=== PATIENT | male | born 2000 | race Caucasian/White ===

== ENCOUNTER 2022-12-11 16:13 | Outpatient (CLI) | payer MEDICAID, SELFPAY | END 2022-12-11 16:14 | disposition home or self-care (01) | LOC: AMB 12-17 12:22 | PROVIDERS: Visit Provider Family Medicine | DX: R07.89 Other chest pain (principal) | CPT/HCPCS: A0998 ==

== ENCOUNTER 2023-06-14 20:57 | Outpatient (CLI) | payer MEDICAID, SELFPAY ==
--- OUTSIDE RECORDS SUMMARY | 2023-06-16 11:09 | XMS_ITS ---
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, not intractable, without status epilepticus G40.009 Active Problem Unspecified convulsions R56.9 Active Problem Dysthymic disorder F34.1 Active ALLERGIES No Known Allergies ENCOUNTERS Encounter Location Date Diagnosis [facility] [address] [place] [address] May, Unspecified convulsions R56.9 ; Localization-related (focal) (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, not intractable, without status epilepticus G40.009 and Other adjunct faculty for medical terminology (current) drug therapy Z79.899 [facility] [address] [place] [address] Jan, Unspecified convulsions R56.9 [facility] [address] [place] [address] Jan, [facility] [place] [address] [place] [address] Nov, Unspecified convulsions R56.9 ; Other adjunct faculty for medical terminology (current) drug therapy Z79.899 and Encounter for screening for other suspected endocrine disorder Z13.29 [facility] [address] [place] [address] Nov, Dysthymic disorder F34.1 [facility] [address] [place] [address] Nov, [facility] [address] [place] [address] Nov, [facility] [address] [place] [address] Nov, [facility] [address] [place] [address] Nov, Unspecified convulsions R56.9 ; Other specified depressive episodes F32.89 and Anxiety disorder, unspecified F41.9 [facility] [address] [place] [address] Aug, [facility] [place] [address] [place] [address] Aug, Unspecified convulsions R56.9 ; Other adjunct faculty for medical terminology (current) drug therapy Z79.899 and Encounter for screening for other suspected endocrine disorder Z13.29 [facility] [place] [facility] [address] [place] [address] May, Unspecified convulsions R56.9 ; Other penitentiary (current) drug therapy Z79.899 and Encounter for screening for other suspected endocrine disorder Z13.29 [facility] [address] [place] [address] Dec, Unspecified convulsions R56.9 [facility] [place] [address] [place] [address] Dec, Unspecified convulsions R56.9 ; Other penitentiary (current) drug therapy Z79.899 and Encounter for screening for other suspected endocrine disorder Z13.29 [facility] [address] [place] [address] Oct, Unspecified convulsions R56.9 ; Other adjunct faculty for medical terminology (current) drug therapy Z79.899 and Encounter for screening for other suspected endocrine disorder Z13.29 [facility] [place] [address] [place] [address] Oct, [facility] [address] [place] [address] Sep, IMMUNIZATIONS No Known Immunizations SOCIAL HISTORY [...] UREA NITROGEN (BUN) CREATININE 0.95 eGFR NON-AFR. CANADIAN eGFR BUN/CREATININE RATIO SODIUM 140 POTASSIUM CHLORIDE [...] for seizure, EEG and review of results, MOVIE ACTOR 1230PM EEG, 230pm DLD, New Appt Insurance Providers Health Insurance Type Health Plan Insurance Address Health Plan Insurance Phone Health Plan Insurance Name Health Plan Coverage Dates Member ID Patient Relationship to Subscriber Patient Address Patient Phone Patient Name Patient Date of Subscriber ID Subscriber Name Subscriber Date of Group No EDGARARE SRINIVASA RUANO [address] [place] [id number] [place] self Rajinder Archibal d [id number] [facility] SRINIVASA RUANO [address] [place] [address] IR[place] B[place] self Rajinder Archibal d [id number] [place]
== END 2023-06-14 20:58 | disposition home or self-care (01) ==
LOC: AMB 06-16 11:07
PROVIDERS: Visit Provider Family Medicine
DX: R07.89 Other chest pain (principal)
CPT/HCPCS: A0425; A0427

== ENCOUNTER 2023-06-14 21:24 | Emergency (ER) | payer MEDICAID, SELFPAY ==
[2023-06-14 21:36] VITALS: BP 141/78; PULSE 84; RESP 18; TEMP 36.8; O2SAT 99; BMI 24.4
--- NOTE | 2023-06-14 21:40 | ED_ITS ---
HPI - Chest Pain General Time Seen by Provider: 21:40 Date Seen: 06/14/23 Chief Complaint: Chest Pain Stated Complaint: Chest Pain Time Seen by Provider: 06/14/23 21:39 Source: patient, EMS, RN notes reviewed and old records reviewed Mode of arrival: EMS Limitations: no limitations History of Present Illness HPI narrative: 22-year-old male who comes in today with substernal chest pain. This occurred at work, last about an hour, accompanied by shortness of breath and some nausea but no vomiting. No radiation. Resolved without intervention. Denies leg swelling. Does have a history of gastritis and says he feels bloated today. No prior surgeries. Review of chart shows that patient was evaluated by EMS in November for right-sided chest pain but declined transport to the emergency department at that time. Related Data Home Medications Medication Instructions Recorded Confirmed No Known Home Medications 06/14/23 06/14/23 Allergies Allergy/AdvReac Type Severity Reaction Status Date / Time No Known Drug Allergies Allergy Verified 06/14/23 21:48 Review of Systems Status of ROS Reports: 10 or more systems reviewed and unremarkable except as noted in History and below Exam Narrative Exam Narrative: General: Well-developed and well-nourished, no acute distress Head: Atraumatic and normocephalic Eyes: Pupils are equal reactive, extraocular motions intact, conjunctiva clear ENT: External nose and ears are normal, posterior pharynx without erythema or exudate Neck: No midline cervical tenderness, full spontaneous range of motion the neck, trachea midline, no adenopathy Heart: Regular rate and rhythm no murmurs or thrills Lungs: Clear to auscultation bilaterally without wheezes or crackles Abdomen: Soft, epigastric tenderness,, nondistended with active bowel sounds Musculoskeletal: No tenderness, deformity, or edema Neurologic: Awake, alert, and oriented x3, no gross focal neurologic deficits, cranial nerves intact as tested Psych: Mood and affect are appropriate Skin: No rashes Const Vital Signs, click to edit/add: Vital Signs - 24 hr 06/14/23 21:36 Temperature 98.2 F Pulse Rate [Right Pulse Oximeter] 84 Respiratory Rate 18 Blood Pressure [Right Upper Arm] 141/78 H Pulse Oximetry 99 Oxygen Delivery Method Room Air Course Course Hospital Course: Patient seen and examined, prior records reviewed. Patient presents today with substernal chest pain lasting about an hour occurred about an hour prior to coming emergency department. Currently pain-free. He does have some epigastric tenderness on exam. EKG is reassuring, labs are ordered. Consider D-dimer or CT PE study but patient is low risk and PERC negative. Reevaluation(s) Time of Reevaluation #1: 22:40 Reevaluation #1: Labs independently interpreted by me with reassuring basic panel, negative troponin, normal lipase. Remaining labs are pending and if reassuring patient be discharged. Time of Reevaluation #2: 23:17 Reevaluation #2: Labs independently interpreted by me with slightly elevated AST and ALT. Consider cholelithiasis but no right upper quadrant tenderness at this time, no evidence of choledocholithiasis with normal bilirubin and normal lipase. Troponin is negative and EKG is reassuring, patient remains pain-free. Patient is stable for discharge with outpatient follow-up Vital Signs Vital signs: Initial Vital Signs Temperature 98.2 F 06/14/23 21:36 Temperature Source Temporal Artery Scan 06/14/23 21:36 Pulse Rate 84 06/14/23 21:36 Pulse Rhythm Regular 06/14/23 21:36 Pulse Strength 3+ Normal 06/14/23 21:36 Respiratory Rate 18 06/14/23 21:36 Blood Pressure 141/78 H 06/14/23 21:36 Blood Pressure Mean 99 06/14/23 21:36 Blood Pressure Position Sitting 06/14/23 21:36 Pulse Oximetry 99 06/14/23 21:36 Oxygen Delivery Method Room Air 06/14/23 21:36 Vital Signs Temperature 98.2 F 06/14/23 21:36 Pulse Rate 84 06/14/23 21:36 Respiratory Rate 18 06/14/23 21:36 Blood Pressure 141/78 H 06/14/23 21:36 Pulse Oximetry 99 06/14/23 21:36 Oxygen Delivery Method Room Air 06/14/23 21:36 Temperature 98.2 F 06/14/23 21:36 Pulse Rate 84 06/14/23 21:36 Respiratory Rate 18 06/14/23 21:36 Blood Pressure 141/78 H 06/14/23 21:36 Pulse Oximetry 99 06/14/23 21:36 Oxygen Delivery Method Room Air 06/14/23 21:36 MDM - Chest Pain Lab Data Labs: Lab Results 06/14/23 Range/Units 22:02 WBC 7.27 (4.50-11.00) K/uL RBC 5.21 (4.30-5.90) m/uL Hgb 15.2 (13.5-17.5) gm/dL Hct 45.4 (37.0-53.0) % MCV 87 (80-100) fL MCH 29 (26-34) pg MCHC 34 (32-36) gm/dL RDW Coeff of Randy 12.6 (11.5-15.5) % Plt Count 289 (140-440) K/uL Neut % (Auto) 52.1 (42.0-72.0) % Lymph % (Auto) 30.8 (20-44) % Hyde % (Auto) 11.1 H (0.0-11.0) % Eos % (Auto) 3.6 (0.0-7.0) % Baso % (Auto) 0.6 (0.0-3.0) % Neut # (Auto) 3.79 (1.7-7.0) K/uL Lymph # (Auto) 2.24 (0.90-2.90) K/uL Hyde # (Auto) 0.80 (0.00-0.90) K/UL Eos # (Auto) 0.26 (0.00-0.50) K/uL Baso # (Auto) 0.04 (0.00-0.30) K/uL Abs Immat Gran (auto) 0.13 (0.00-0.30) K/uL Imm/Tot Granulo (auto) 1.8 % Sodium 140 (135-149) mmol/L Potassium 3.9 (3.6-5.1) mmol/L Chloride 103 (96-114) mmol/L Carbon Dioxide 28 (20-32) mmol/L BUN 21 (5-24) mg/dL Creatinine 0.9 (0.5-1.5) mg/dL Estimated Creat Clear 143.03 Estimated GFR 122 ml/min Glucose 121 H (60-115) mg/dL Calcium 9.3 (8.4-10.6) mg/dL Magnesium 2.1 (1.5-2.6) mg/dL Total Bilirubin 0.3 (0.1-1.5) mg/dL Direct Bilirubin 0.1 (0.0-0.5) mg/dL AST 59 H (12-35) U/L ALT 74 H (4-50) U/L Alkaline Phosphatase 91 (40-150) U/L Total Protein 7.4 (6.0-8.3) g/dL Albumin 4.4 (3.3-5.0) g/dL Lipase 51 (23-300) U/L POC Troponin I 0.00 L (0.01-0.04) ng/ml ECG Data Attestation: I personally reviewed and interpreted this ECG as follows: ECG interpretation date: 06/14/23 ECG interpretation time: 21:40 Prior ECG tracings: not available for review Interpretation: Sinus rhythm rate 81, no acute ST elevations or depressions, normal intervals, normal axis, QTC 422, MT 144 Discharge Plan Discharge Clinical Impression: Chest pain, Transaminitis Patient Disposition: Home, Self-Care Condition: Stable Instructions: Chest Pain (DC) Additional Instructions: Tylenol or ibuprofen as needed for chest pain. Follow-up with your primary care doctor as needed. Your liver tests are slightly elevated. This could be from a mild viral infection, medications, alcohol use, or other causes inflammation. Follow-up with your primary care provider in 1 week for recheck of these tests and to discuss further evaluation and treatment for her chest pain if needed. Activity Level: Activity as Tolerated Discharge Diet: Regular Prescriptions: No Action No Known Home Medications Follow Up/Referrals: Provider,Not a Local [Primary Care Provider] - Stand Alone Forms: [employer] Info Instructions
--- OUTSIDE RECORDS SUMMARY | 2023-06-14 22:08 | XMS_ITS ---
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, not intractable, without status epilepticus 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 Active 169320957 Problem Unspecified convulsions R56.9 Active 84170572 Problem Dysthymic disorder F34.1 Active 67534995 ALLERGIES No Known Allergies ENCOUNTERS Encounter Location Date Diagnosis [facility] [address] [place] [address] May, Unspecified convulsions R56.9 ; Localization-related (focal) (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, not intractable, without status epilepticus G40.009 and Other termite treater helper (current) drug therapy Z79.899 [facility] [address] [place] [address] Jan, Unspecified convulsions R56.9 [facility] [address] [place] [address] Jan, [facility] [place] [address] [place] [address] Nov, Unspecified convulsions R56.9 ; Other senior care (current) drug therapy Z79.899 and Encounter for screening for other suspected endocrine disorder Z13.29 [facility] [address] [place] [address] Nov, Dysthymic disorder F34.1 [facility] [address] [place] [address] Nov, [facility] [address] [place] [address] Nov, [facility] [address] [place] [address] Nov, [facility] [address] [place] [address] Nov, Unspecified convulsions R56.9 ; Other specified depressive episodes F32.89 and Anxiety disorder, unspecified F41.9 [facility] [address] [place] [address] 14 Aug, 2020 [facility] [place] [address] [place] [address] Aug, Unspecified convulsions R56.9 ; Other termite treater helper (current) drug therapy Z79.899 and Encounter for screening for other suspected endocrine disorder Z13.29 [facility] [place] [address] [place] [address] May, Unspecified convulsions R56.9 ; Other senior care (current) drug therapy Z79.899 and Encounter for screening for other suspected endocrine disorder Z13.29 [facility] [address] [place] [address] Dec, Unspecified convulsions R56.9 [facility] [place] [address] [place] [address] Dec, Unspecified convulsions R56.9 ; Other senior care (current) drug therapy Z79.899 and Encounter for screening for other suspected endocrine disorder Z13.29 [facility] [place] [address] [place] [address] Oct, Unspecified convulsions R56.9 ; Other senior care (current) drug therapy Z79.899 and Encounter for screening for other suspected endocrine disorder Z13.29 [facility] [place] [address] [place] [address] Oct, [facility] [address] [place] [address] Sep, IMMUNIZATIONS No Known Immunizations SOCIAL HISTORY Qualifiers Date Current Smoker REASON FOR REFERRAL FUNCTIONAL STATUS PLAN OF CARE Activity Details Follow Up 1 Year Reason: Future Test OXCARBAZEPINE Future Test COMPREHENSIVE METABO LIC PANEL [id number] Pending Test BASIC METABOLIC PANE L Pending Test OXCARBAZEPINE Pending Test COMPREHENSIVE METABO LIC PANEL Pending Test CBC (INCLUDES DIFF/P LT) Pending Test OXCARBAZEPINE Pending Test COMPREHENSIVE METABO LIC PANEL Pending Test CBC (INCLUDES DIFF/P LT) Pending Test OXCARBAZEPINE Pending Test VITAMIN D, 1,25 DIHY DROXY LC/MS/MS Pending Test COMPREHENSIVE METABO LIC PANEL Pending Test CBC (INCLUDES DIFF/P LT) Pending Test OXCARBAZEPINE Pending Test VITAMIN D, 1,25 DIHY DROXY LC/MS/MS VITAL SIGNS Weight 82.7 kg 2022-06-09 Weight 75.2 kg 2020-09-04 Weight 75.1 kg 2020-06-05 Weight 72.0 kg 2019-12-25 Weight 76.1 kg 2019-10-31 Height 72 in 2022-06-09 Height 72 in 2020-12-18 Height 72 in 2020-09-04 Height 72 in 2020-06-05 Height 72 in 2019-12-25 Height 72 in 2019-10-31 Heart Rate 70 /min 2020-09-04 Heart Rate 92 /min 2019-12-25 Heart Rate 67 /min 2019-10-31 Temperature 98.4 degrees Fahrenheit BMI 24.72 kg/m2 2022-06-09 BMI 21.97 kg/m2 2020-12-18 BMI 22.48 kg/m2 2020-09-04 BMI 22.45 kg/m2 2020-06-05 BMI 21.53 kg/m2 2019-12-25 BMI 22.75 kg/m2 2019-10-31 Blood pressure systolic 125 mm Hg Blood pressure diastolic 75 mm Hg 2020-08 MEDICATIONS Medication Instructions Dosage Frequency Start Date End Date Duration Status Ibuprofen 200 MG Orally Three times a day 1 tablet with food or milk as needed 8h Active Melatonin 10 MG as directed Not-Takin g OXcarbazepine 300 MG Orally twice a day (bid) 3 tablets 90 days Active PROCEDURES Procedure Date Ordered Result Body Site PSYCL/NRPSYC TECH Nov 25, 2020 NRPSYC TST EVAL PHYS/QHP 1ST Nov 25, 2020 NRPSYC TST EVAL PHYS/QHP EA Nov 25, 2020 PSYCH DIAGNOSTIC EVALUATION Dec 12, 2020 NEUROBEHAVIORAL STATUS EXAM Nov 25, 2020 PSYCL/NRPSYC TST TECH EA Nov 25, 2020 RESULTS Name Result Date Reference Range OXCARBAZEPINE 2019-12-25 OXYCARBAZEPINE 10.6 COMPREHENSIVE METABOLIC PANEL 2019-12-25 GLUCOSE UREA NITROGEN (BUN) CREATININE 0.95 eGFR NON-AFR. ESTONIAN eGFR BUN/CREATININE RATIO SODIUM 140 POTASSIUM CHLORIDE CARBON DIOXIDE CALCIUM PROTEIN, TOTAL ALBUMIN GLOBULIN ALBUMIN/GLOBULIN RATIO BILIRUBIN, TOTAL ALKALINE PHOSPHATASE 103 AST 14 ALT 9 EGFR REASON FOR VISIT Follow-up regarding unspecified spells, Medication management, future plan of care, oxca refill, DLD to [place], Follow-up regarding unspecified spells, Medication management, future plan of care, 02/25 scheduled---Suma MD-MD appt, Depression, Follow-up regarding unspecified spells, Medication management, future plan of care, Depression, 12/09-scheduled-------therapy referral, mental health follow up, neuropsych feedback, Neuropsychological Assessment, 09/04 Neuropsych order , Follow-up regarding unspecified spells, Medication management, future plan of care, Follow-up for unspecified spells, 12/29 Mailbox full - labs , Follow-up for unspecified spells, New patient visit/emergency department followup for seizure, EEG and review of results, CLIENT TECHNICAL SUPPORT ASSOCIATE 1230PM EEG, 230pm DLD, New Appt Insurance Providers Health Insurance Type Health Plan Insurance Address Health Plan Insurance Phone Health Plan Insurance Name Health Plan Coverage Dates Member ID Patient Relationship to Subscriber Patient Address Patient Phone Patient Name Patient Date of Subscriber ID Subscriber Name Subscriber Date of Group No ELIEZER MCDONALD [address] [place] [address] [place] self Rajinder Archibal d [id number] IR[place] [address] [place] [address] ELIEZER [place]BE [place] self Rajinder Archibal d [id number] [place]
[2023-06-14 22:22] LABS: Chloride* 103 mmol/L (96-114)
[2023-06-14 22:23] LABS: Potassium* 3.9 mmol/L (3.6-5.1); Sodium* 140 mmol/L (135-149)
[2023-06-14 22:25] LABS: Carbon Dioxide* 28 mmol/L (20-32); Creatinine* 0.9 mg/dL (0.5-1.5); Est. Creatinine Clearance* 143.03; Estimated Glomerular Filt Rate 122 ml/min; Lipase* 51 U/L (23-300)
[2023-06-14 22:26] LABS: Blood Urea Nitrogen* 21 mg/dL (5-24); Calcium* 9.3 mg/dL (8.4-10.6); Glucose* 121 mg/dL (60-115)
[2023-06-14 22:35] LABS: Basophils Absolute Auto 0.04 K/uL (0.00-0.30); Basophils Percent Auto 0.6 % (0.0-3.0); Eosinophils Absolute Auto 0.26 K/uL (0.00-0.50); Eosinophils Percent Auto 3.6 % (0.0-7.0); Hematocrit 45.4 % (37.0-53.0); Hemoglobin* 15.2 gm/dL (13.5-17.5); Immature Granulocytes Abs Auto 0.13 K/uL (0.00-0.30); Immature Granulocytes Pct Auto 1.8 %; Lymphocytes Absolute Auto 2.24 K/uL (0.90-2.90); Lymphocytes Percent Auto 30.8 % (20-44); Mean Corpuscular HGB Conc 34 gm/dL (32-36); Mean Corpuscular Hemoglobin 29 pg (26-34); Mean Corpuscular Volume 87 fL (80-100); Monocytes Percent Auto 11.1 % (0.0-11.0); Neutrophils Absolute Auto 3.79 K/uL (1.7-7.0); Neutrophils Percent Auto 52.1 % (42.0-72.0); Platelet Count* 289 K/uL (140-440); RDW Coefficient of Variation % 12.6 % (11.5-15.5); Red Blood Count 5.21 m/uL (4.30-5.90); White Blood Count* 7.27 K/uL (4.50-11.00)
[2023-06-14 22:59] LABS: Albumin* 4.4 g/dL (3.3-5.0)
[2023-06-14 23:01] LABS: Aspartate Amino Transferase* 59 U/L (12-35); Bilirubin Direct* 0.1 mg/dL (0.0-0.5); Bilirubin Total* 0.3 mg/dL (0.1-1.5); Magnesium* 2.1 mg/dL (1.5-2.6); Total Protein* 7.4 g/dL (6.0-8.3)
[2023-06-14 23:02] LABS: Alanine Aminotransferase* 74 U/L (4-50); Alkaline Phosphatase* 91 U/L (40-150)
[2023-06-14 23:08] LABS: Slide Review Reflex No
[2023-06-15 00:23] VITALS: BP 132/74; PULSE 78; RESP 18; TEMP 36.8; O2SAT 99
== END 2023-06-14 23:40 | disposition home or self-care (01) ==
PROVIDERS: Emergency Provider Family Medicine
DX: R07.9 Chest pain, unspecified (principal); R74.01 Elevation of levels of liver transaminase levels
CPT/HCPCS: 36415; 80048; 80076; 83690; 83735; 84484; 85025; 93005; 99284

== ENCOUNTER 2025-10-11 23:50 | Outpatient (CLI) | payer OTHER, SELFPAY | END 2025-10-11 23:51 | disposition home or self-care (01) | LOC: AMB 10-15 17:32 | PROVIDERS: Visit Provider Family Medicine | DX: R07.89 Other chest pain (principal) | CPT/HCPCS: A0998 ==